=== PATIENT | male | born 1975 | race Caucasian/White ===

== ENCOUNTER → 2017-07-13 | Outpatient (CLI) | payer OTHER ==
--- NOTE | 2017-07-13 15:39 | US ---
EXAMINATION TYPE: US carotid duplex BILAT DATE OF EXAM: 07/13/2017 COMPARISON: NONE CLINICAL HISTORY: E78.2 MIXED HYPERLIPIDEMIA. left hand numbness per patient EXAM MEASUREMENTS: RIGHT: Peak Systolic Velocity (PSV) cm/sec ----- Right CCA: 76.7 ----- Right ICA: 60.3 ----- Right ECA: 75.6 ICA/CCA ratio: 0.8 RIGHT: End Diastole cm/sec ----- Right CCA: 26.0 ----- Right ICA: 32.5 ----- Right ECA: 22.7 LEFT: Peak Systolic Velocity (PSV) cm/sec ----- Left CCA: 106.9 ----- Left ICA: 105.3 ----- Left ECA: 50.3 ICA/CCA ratio: 1.0 LEFT: End Diastole cm/sec ----- Left CCA: 33.6 ----- Left ICA: 18.3 ----- Left ECA: 13.3 VERTEBRALS (direction of flow): Right Vertebral: Antegrade Left Vertebral: Antegrade Rhythm: Normal No significant stenosis seen, no elevated velocities. IMPRESSION: No sonographic evidence of hemodynamically significant stenosis within either carotid ar terial system.
== END | disposition home or self-care (01) ==
LOC: RADUSWWP 14:45
PROVIDERS: ATTEND Family Medicine
DX: E78.00 Pure hypercholesterolemia, unspecified (principal)
CPT/HCPCS: 93880

== ENCOUNTER → 2020-01-30 | Outpatient (CLI) | payer OTHER ==
--- NOTE | 2020-01-31 07:28 | CT ---
EXAMINATION TYPE: CT sinus wo con DATE OF EXAM: 01/30/2020 COMPARISON: None HISTORY: Chronic sinusitis. Dizziness. CT DLP: 673.2 mGycm. Automated Exposure Control for Dose Reduction was Utilized. TECHNIQUE: CT scan of the sinuses is performed without contrast, axial images are obtained, coronal r eformatted images are also reviewed. FINDINGS: The paranasal sinuses including the frontal, ethmoid, sphenoid, and maxillary sinuses bila terally are well-aerated without abnormal opacification. The ostiomeatal complex is patent bilateral ly on the coronal images. The globes are intact bilaterally. There is a deviated nasal septum. Lisbet bullosa is present on the right. IMPRESSION: The sinuses are clear and the ostiomeatal complex is patent bilaterally.
== END | disposition home or self-care (01) ==
LOC: RADCTMAIN 18:21
PROVIDERS: ATTEND Family Medicine
DX: J32.9 Chronic sinusitis, unspecified (principal)
CPT/HCPCS: 70486

== ENCOUNTER 2021-02-08 08:15 | Emergency (ER) | payer OTHER ==
[2021-02-08] MEDS ORDERED: HYDROmorphone 1 MG/ML 1 ML SYRINGE IVP STA (08:30)
[2021-02-08 08:48] LABS: Basophils # (A) 0.1 k/uL (0-0.2); Basophils % (A) 1 %; Eosinophils # (A) 0.3 k/uL (0-0.7); Eosinophils % (A) 3 %; HCT 43.7 % (39.0-53.0); HGB 15.2 gm/dL (13.0-17.5); Lymphocytes # (A) 3.2 k/uL (1.0-4.8); Lymphocytes % (A) 32 %; MCH 28.6 pg (25.0-35.0); MCHC 34.9 g/dL (31.0-37.0); MCV 82.1 fL (80.0-100.0); Monocytes # (A) 0.6 k/uL (0-1.0); Monocytes % (A) 6 %; Neutrophils # (A) 5.5 k/uL (1.3-7.7); Neutrophils % (A) 56 %; Platelet Count 329 k/uL (150-450); RBC 5.33 m/uL (4.30-5.90); RDW 13.7 % (11.5-15.5); WBC 9.8 k/uL (3.8-10.6)
--- NOTE | 2021-02-08 08:48 | ED ---
Abdominal Pain HPI - General Chief Complaint: Abdominal Pain Stated Complaint: Back pain Time Seen by Provider: 02/08/21 08:25 Source: patient Mode of arrival: ambulatory Limitations: no limitations - History of Present Illness Initial Comments: Patient is a 45-year-old male presenting to the emergency Department with complaints of severe right sided abdominal and back pain that started suddenly this morning. Patient states he never had pain like this in the past. He denies history of kidney stones. He states it feels like it's in his right back with radiation towards the front, describes it as burning, severe, 10/10. Patient is severely diaphoretic, can barely speak because of his pain level. He denies any chest pain or shortness of breath, no recent fevers. He states he was eating and drinking and follow his normal self yesterday. He has no cardiac history, no history of abdominal surgeries. No nausea or vomiting. He has no further complaints at this time. Upon arrival to the ER, his blood pressure is high 163/118, rest of vitals within normal limits. - Related Data Previous Rx's Medication Instructions Recorded Ketorolac [Toradol] 10 mg PO Q8HR #10 tab 02/08/21 Allergies Allergy/AdvReac Type Severity Reaction Status Date / Time No Known Allergies Allergy Verified 02/08/21 08:19 Review of Systems ROS Statement: Those systems with pertinent positive or pertinent negative responses have been documented in the HPI. ROS Other: All systems not noted in ROS Statement are negative. Past Medical History Past Medical History: No Reported History History of Any Multi-Drug Resistant Organisms: None Reported Past Surgical History: No Surgical Hx Reported Past Psychological History: No Psychological Hx Reported Smoking Status: Never smoker Past Alcohol Use History: None Reported Past Drug Use History: None Reported General Exam - General Exam Comments Initial Comments: GENERAL: Patient is well-developed and well-nourished. Patient is diaphoretic, in severe pain, trouble speaking full sentences secondary to the pain. HEAD: Atraumatic, normocephalic. EYES: Pupils equal round and reactive to light, extraocular movements intact, sclera anicteric, conjunctiva are normal. Eyelids were unremarkable. ENT: Nares patent, oropharynx clear without exudates. Moist mucous membranes. NECK: Normal range of motion, supple without lymphadenopathy or JVD. LUNGS: Unlabored respirations. Breath sounds clear to auscultation bilaterally and equal. No wheezes rales or rhonchi. HEART: Tachycardia rate and rhythm without murmurs, rubs or gallops. ABDOMEN: Soft, tender to palpation of the right side of the abdomen, positive guarding, normoactive bowel sounds. No masses appreciated. : Deferred MUSCULOSKELETAL: Normal extremities with adequate strength and normal range of motion, no pitting or edema. No clubbing or cyanosis. NEUROLOGICAL: Patient is alert and oriented x 3. Motor and sensory are also intact. Cranial nerves II through XII grossly intact. PSYCH: Normal mood, normal affect. SKIN: Warm, Dry, normal turgor, no rashes or lesions noted. Pulses are equal and bilateral bilateral femoral and bilateral dorsal pedis. Limitations: no limitations Course Vital Signs 02/08/21 02/08/21 02/08/21 08:19 08:24 08:30 Temperature 98.0 F Pulse Rate 62 59 L Respiratory 16 16 Rate Blood Pressure 163/118 178/124 O2 Sat by Pulse 99 98 98 Oximetry 02/08/21 02/08/21 02/08/21 08:40 09:13 10:19 Temperature Pulse Rate 62 62 87 Respiratory 10 L 16 16 Rate Blood Pressure 149/90 160/77 108/67 O2 Sat by Pulse 98 99 99 Oximetry Medical Decision Making - Medical Decision Making Patient is a 45-year-old male presenting to the emergency Department with complaints of severe right-sided abdominal pain started suddenly this morning. Patient is severely diaphoretic, crying in pain. He is hypertensive, rest of vitals within normal limits. I did send patient straight to CT to rule out dissection, CT angiogram of the thoracic and pelvis showed no evidence of an aneurysm or dissection, he does have a right 3-4 mm calculus at the UV junction with mild right hydronephrosis. Patients labs are all within normal limits including a normal troponin, urinalysis shows large amount of blood. Patient was given 1 dose of Dilaudid. He has been resting comfortable. I discussed these findings with the patient. She'll be sent home with Toradol tablets for any additional discomfort. I recommended increasing his water intake. He can follow up with his primary care physician. He is agreeable to this plan of care. Return parameters were discussed with him and he verbalized understanding. Case discussed with Dr. Krueger. - Lab Data Result diagrams: 02/08/21 08:24 02/08/21 08:24 Lab Results 02/08/21 02/08/21 02/08/21 Range/Units 08:24 08:24 08:24 WBC 9.8 (3.8-10.6) k/uL RBC 5.33 (4.30-5.90) m/uL Hgb 15.2 (13.0-17.5) gm/dL Hct 43.7 (39.0-53.0) % MCV 82.1 (80.0-100.0) fL MCH 28.6 (25.0-35.0) pg MCHC 34.9 (31.0-37.0) g/dL RDW 13.7 (11.5-15.5) % Plt Count 329 (150-450) k/uL MPV 7.0 Neutrophils % 56 % Lymphocytes % 32 % Monocytes % 6 % Eosinophils % 3 % Basophils % 1 % Neutrophils # 5.5 (1.3-7.7) k/uL Lymphocytes # 3.2 (1.0-4.8) k/uL Monocytes # 0.6 (0-1.0) k/uL Eosinophils # 0.3 (0-0.7) k/uL Basophils # 0.1 (0-0.2) k/uL PT (9.0-12.0) sec INR (<1.2) APTT (22.0-30.0) sec Sodium 140 (137-145) mmol/L Potassium 3.8 (3.5-5.1) mmol/L Chloride 106 (98-107) mmol/L Carbon Dioxide 23 (22-30) mmol/L Anion Gap 11 mmol/L BUN 16 (9-20) mg/dL Creatinine 0.98 (0.66-1.25) mg/dL Est GFR (CKD-EPI)AfAm >90 (>60 ml/min/1.73 sqM) Est GFR (CKD-EPI)NonAf >90 (>60 ml/min/1.73 sqM) Glucose 131 H (74-99) mg/dL Plasma Lactic Acid Kobe (0.7-2.0) mmol/L Calcium 9.4 (8.4-10.2) mg/dL Total Bilirubin 0.3 (0.2-1.3) mg/dL AST 40 (17-59) U/L ALT 42 (4-49) U/L Alkaline Phosphatase 110 (38-126) U/L Troponin I (0.000-0.034) ng/mL Total Protein 7.1 (6.3-8.2) g/dL Albumin 4.5 (3.5-5.0) g/dL Amylase 51 (30-110) U/L Lipase 140 (23-300) U/L Urine Color Light Yellow Urine Appearance Clear (Clear) Urine pH 5.5 (5.0-8.0) Ur Specific [place] >1.050 H (1.001-1.035) Urine Protein Trace H (Negative) Urine Glucose (UA) Negative (Negative) Urine Ketones Negative (Negative) Urine Blood Large H (Negative) Urine Nitrite Negative (Negative) Urine Bilirubin Negative (Negative) Urine Urobilinogen <2.0 (<2.0) mg/dL Ur Leukocyte Esterase Negative (Negative) Urine RBC 87 H (0-5) /hpf Urine WBC 2 (0-5) /hpf Ur Squamous Epith Cells <1 (0-4) /hpf 02/08/21 02/08/21 02/08/21 Range/Units 08:24 08:24 08:24 WBC (3.8-10.6) k/uL RBC (4.30-5.90) m/uL Hgb (13.0-17.5) gm/dL Hct (39.0-53.0) % MCV (80.0-100.0) fL MCH (25.0-35.0) pg MCHC (31.0-37.0) g/dL RDW (11.5-15.5) % Plt Count (150-450) k/uL MPV Neutrophils % % Lymphocytes % % Monocytes % % Eosinophils % % Basophils % % Neutrophils # (1.3-7.7) k/uL Lymphocytes # (1.0-4.8) k/uL Monocytes # (0-1.0) k/uL Eosinophils # (0-0.7) k/uL Basophils # (0-0.2) k/uL PT 10.3 (9.0-12.0) sec INR 1.0 (<1.2) APTT 22.6 (22.0-30.0) sec Sodium (137-145) mmol/L Potassium (3.5-5.1) mmol/L Chloride (98-107) mmol/L Carbon Dioxide (22-30) mmol/L Anion Gap mmol/L BUN (9-20) mg/dL Creatinine (0.66-1.25) mg/dL Est GFR (CKD-EPI)AfAm (>60 ml/min/1.73 sqM) Est GFR (CKD-EPI)NonAf (>60 ml/min/1.73 sqM) Glucose (74-99) mg/dL Plasma Lactic Acid Kobe 1.9 (0.7-2.0) mmol/L Calcium (8.4-10.2) mg/dL Total Bilirubin (0.2-1.3) mg/dL AST (17-59) U/L ALT (4-49) U/L Alkaline Phosphatase (38-126) U/L Troponin I <0.012 (0.000-0.034) ng/mL Total Protein (6.3-8.2) g/dL Albumin (3.5-5.0) g/dL Amylase (30-110) U/L Lipase (23-300) U/L Urine Color Urine Appearance (Clear) Urine pH (5.0-8.0) Ur Specific [place] (1.001-1.035) Urine Protein (Negative) Urine Glucose (UA) (Negative) Urine Ketones (Negative) Urine Blood (Negative) Urine Nitrite (Negative) Urine Bilirubin (Negative) Urine Urobilinogen (<2.0) mg/dL Ur Leukocyte Esterase (Negative) Urine RBC (0-5) /hpf Urine WBC (0-5) /hpf Ur Squamous Epith Cells (0-4) /hpf - EKG Data EKG Comments: Normal sinus rhythm, inferior infarct, age undetermined, no signs of acute ST segment elevation. Ventricular rate 62, UT over 118, QTC 428. Disposition Clinical Impression: Right ureteral stone, Abdominal pain Disposition: HOME SELF-CARE Condition: Stable Instructions (If sedation given, give patient instructions): Kidney Stones (ED) Additional Instructions: Please return to the Emergency Department if symptoms worsen or any other concerns. May take Toradol or ibuprofen for any further discomfort. Be sure to increase your fluid intake as discussed. If symptoms persist, follow-up with urology. Prescriptions: Ketorolac [Toradol] 10 mg PO Q8HR #10 tab Is patient prescribed a controlled substance at d/c from ED?: No Referrals: Pratik Castro MD [Primary Care Provider] - 1-2 days Luis Ji MD [STAFF PHYSICIAN] - 1-2 days Time of Disposition: 10:53
[2021-02-08 08:55] LABS: ALT 42 U/L (4-49); AST 40 U/L (17-59); African American GFR (CKD) >90 (>60 ml/min/1.73 sqM); Albumin 4.5 g/dL (3.5-5.0); Alkaline Phosphatase 110 U/L (38-126); Amylase 51 U/L (30-110); Anion Gap 11 mmol/L; Blood Urea Nitrogen 16 mg/dL (9-20); Calcium 9.4 mg/dL (8.4-10.2); Carbon Dioxide 23 mmol/L (22-30); Chloride 106 mmol/L (98-107); Glucose 131 mg/dL (74-99); Lipase 140 U/L (23-300); Non-African American GFR(CKD) >90 (>60 ml/min/1.73 sqM); Potassium 3.8 mmol/L (3.5-5.1); Sodium 140 mmol/L (137-145); Total Bilirubin 0.3 mg/dL (0.2-1.3); Total Protein 7.1 g/dL (6.3-8.2)
[2021-02-08 09:10] LABS: Partial Thromboplastin Time 22.6 sec (22.0-30.0); Prothrombin Time 10.3 sec (9.0-12.0)
[2021-02-08 09:14] VITALS: RESP 16
[2021-02-08 10:29] LABS: Appearance,Urine Clear (Clear); Bilirubin,Urine Negative (Negative); Blood,Urine Large (Negative); Color,Urine Light Yellow; Glucose,Urine (UA) Negative (Negative); Ketones,Urine Negative (Negative); Leukocyte Esterase,Urine Negative (Negative); Nitrite,Urine Negative (Negative); PH, Urine 5.5 (5.0-8.0); Protein,Urine Trace (Negative); RBC,Urine 87 /hpf (0-5); Squamous Epithelial Cell,Urine <1 /hpf (0-4); Urobilinogen,Urine <2.0 mg/dL (<2.0); WBC,Urine 2 /hpf (0-5)
[2021-02-08 10:34] LABS: Specific Gravity,Urine >1.050 (1.001-1.035)
--- NOTE | 2021-02-08 10:42 | CT ---
EXAMINATION TYPE: CT angio thor/abd pel aorta DATE OF EXAM: 02/08/2021 HISTORY: 45-year-old male with severe abdominal pain COMPARISON: NONE CT DLP: 1369.3 mGycm. Automated Exposure Control for Dose Reduction was Utilized. TECHNIQUE: CT scan of the abdomen and pelvis is performed 100 mL Isovue-370 IV contrast. FINDINGS: THE AORTA: The aorta is normal in course and caliber and there is no evidence of aortic aneurysm or d issection. The celiac trunk, SMA, renal arteries and BOBBY are patent. The terminal branches of the aor ta are patent to the level of the upper thigh. PULMONARY ARTERY: Normal in diameter. No occlusive filling defects in the main right or left pulmonar y arteries. CHEST: No focal airspace disease, pneumothorax or pleural effusion seen. Trachea and bronchial tree a re patent. There is a 6 mm nodule in the right lower lobe series 501 image 59. There is a 4 mm pleura l-based nodule in the right lower lobe series 501 image 63. The heart is normal in size and there is no pericardial effusion. No hilar or mediastinal adenopathy. ABDOMEN: Liver, gallbladder, spleen, adrenal glands and pancreas are within normal limits. There is n o abnormal biliary ductal dilatation. The pancreas has partial fatty changes. There is normal attenuation of the bilateral renal parenchyma. There is a 3 mm right ureterovesical j unction calculus with mild right hydroureter or hydronephrosis. The urinary bladder is partially dist ended. There is no evidence of intestinal obstruction. There is no acute diverticulosis or appendicitis. The appendix is normal in appearance. There is no pneumoperitoneum or ascites. No enlarged retroperitoneal or pelvic lymph nodes seen. Small fat-containing left inguinal hernia noted. No aggressive osseous lesion seen. Mild scoliosis noted in the thoracolumbar spine. Mild to moderate degenerative changes seen in the spine most severe at L4-5. Soft tissue is unremarkable. IMPRESSION: 1. No aneurysm or dissection the aorta. 2. Right UVJ 3-4 mm calculus with mild right hydronephrosis. 3. Right lower lobe incidental pulmonary nodules measuring 4 mm to 6 mm could be inflammatory, infect ious or malignant. Follow-up according to Fleischner criteria recommended.
[2021-02-08 11:12] VITALS: BP 119/80; PULSE 80; TEMP 98.1
== END 2021-02-08 11:11 | disposition home or self-care (01) ==
LOC: EC 08:15
DX: N13.2 Hydronephrosis with renal and ureteral calculous obstruction (principal)
CPT/HCPCS: 36415; 93005; 80053; 82150; 83605; 83690; 84484; 85025; 85610; 85730; 81001; 71275; 74174; 99284; 96374; J1170; Q9967

== ENCOUNTER → 2022-02-08 | Outpatient (CLI) | payer OTHER ==
--- NOTE | 2022-02-08 18:51 | US ---
EXAMINATION TYPE: US kidneys/renal and bladder DATE OF EXAM: 02/08/2022 COMPARISON: NONE CLINICAL HISTORY: N20.0 CALCULUS OF KIDNEY. Patient states having a right kidney stone last year and has had pain since EXAM MEASUREMENTS: Right Kidney: 10.9 x 5.7 x 5.1 cm Left Kidney: 11.9 x 5.1 x 5.6 cm Right Kidney: No hydronephrosis, nephrolithiasis or masses seen Left Kidney: No hydronephrosis, nephrolithiasis or masses seen Bladder: distended, anechoic Bilateral Jets seen Incidental finding: enlarged spleen = 15.1 cm There is no evidence for hydronephrosis at this point in time. No nephrolithiasis is seen. No anabel s are identified. The urinary bladder is anechoic. Bilateral ureteral jets are seen. IMPRESSION: 1. No hydronephrosis or nephrolithiasis. 2. Incidental note made of mild splenomegaly.
== END | disposition home or self-care (01) ==
LOC: RADUSWWP 16:26
PROVIDERS: ATTEND Family Medicine
DX: N20.0 Calculus of kidney (principal); R16.1 Splenomegaly, not elsewhere classified
CPT/HCPCS: 76770

== ENCOUNTER → 2022-04-29 | Outpatient (CLI) | payer OTHER ==
--- NOTE | 2022-04-30 11:55 | US ---
EXAMINATION TYPE: US abdomen complete DATE OF EXAM: 04/29/2022 COMPARISON: NONE CLINICAL HISTORY: K80.50 CALCULUS OF BILE DUCT W/O CHOLANGITIS OR CH. TECHNIQUE: Multiple sonographic images of the abdomen are obtained. FINDINGS: EXAM MEASUREMENTS: Liver Length: 16.6 cm Gallbladder Wall: 0.2 cm CBD: 0.5 cm Spleen: 15.4 cm Right Kidney: 11.5 x 4.8 x 5.4 cm Left Kidney: 12.1 x 5.9 x 5.2 cm [employer]INTE[employer]CE NOTES: Patient of large body habitus with extensive overlying midline bowel gas. Technically difficult, limi candelario study. Pancreas: Obscured by bowel gas Liver: Increased attenuation, decreased visualization of vessels suggestive of fatty infiltrate Gallbladder: wnl Evidence for sonographic James's sign: no CBD: very limited visualization, portions visualized appear wnl Spleen: enlarged Right Kidney: No hydronephrosis or masses seen Left Kidney: No hydronephrosis or masses seen Upper IVC: wnl Abd Aorta: portions visualized wnl IMPRESSION: 1. No suspicious acute abdominal ultrasound abnormality. There is some limitation due to bowel gas an d body habitus.
== END | disposition home or self-care (01) ==
LOC: RADUSWWP 16:19
PROVIDERS: ATTEND Family Medicine
DX: R14.3 Flatulence (principal)
CPT/HCPCS: 76700

== ENCOUNTER → 2022-12-21 | Outpatient (CLI) | payer OTHER ==
--- NOTE | 2022-12-22 09:14 | CT ---
EXAMINATION TYPE: CT lower extremity RT wo con DATE OF EXAM: 12/21/2022 COMPARISON: None HISTORY: Soft tissue swelling to distal femur x [address] DLP: 889.8 mGycm Automated exposure control for dose reduction was used. FINDINGS: There is skin thickening and subcutaneous edema in the prepatellar space extending below the level of L1. Small soft tissue varicosities are noted. There is mild thickening of definition of the insertion of quadriceps tendon along the upper margin o f the patella. Trace amount of fluid in the supra patellar bursa. There is no evidence of soft tissue mass. No acute fracture. No dislocation. There is a tiny spur negrito ng the upper margin of L1 with mild narrowing of the medial compartment knee joint and patellofemoral joint. No erosive changes. IMPRESSION: 1. THERE IS SKIN THICKENING AND SUBCUTANEOUS EDEMA IN THE PREPATELLAR SPACE CORRELATE FOR CELLULITIS OR POSTTRAUMATIC EDEMA. IRREGULARITY AT THE QUADRICEPS PATELLA COULD BE ON THE BASIS OF TENDINOSIS OR TENDON INJURY RECOMMEND FOLLOW-UP MRI.
== END | disposition home or self-care (01) ==
LOC: RADCTMAIN 17:26
PROVIDERS: ATTEND Family Medicine
DX: R60.0 Localized edema (principal)

== ENCOUNTER 2023-01-29 17:52 | Emergency (ER) | payer OTHER ==
[2023-01-29 18:00] VITALS: TEMP 98.3
[2023-01-29] MEDS ORDERED: methylPREDNISolone SOD SUCCI 125 MG/2 ML VIAL IV STA (18:25)
[2023-01-29] MEDS ORDERED: diphenhydrAMINE 50 MG/ML 1 ML VIAL IVP STA (18:25)
[2023-01-29] MEDS ORDERED: FAMOTIDINE 20 MG/2 ML VIAL IV STA (19:24)
[2023-01-29] MEDS ORDERED: diphenhydrAMINE 50 MG CAP PO STA (19:40)
--- NOTE | 2023-01-29 20:02 | ED ---
Allergic Reaction HPI - General Chief complaint: Allergic Reaction Stated complaint: Bee Sting above R eye Time Seen by Provider: 01/29/23 18:08 Source: patient Mode of arrival: ambulatory Limitations: no limitations - History of Present Illness Initial Comments: A 47-year-old male presents to the ED with a chief complaint of ALLERGIC reaction. Patient states prior to arrival was stung by a bee over his right eye. Shortly after started to develop swelling over his right eye. Denies rashes. States that he started to also feel short of breath over has no difficulty breathing. No other complaints. - Related Data Previous Rx's Medication Instructions Recorded Ketorolac [Toradol] 10 mg PO Q8HR #10 tab 02/08/21 diphenhydrAMINE [Benadryl] 50 mg PO Q6H PRN #20 capsule 01/29/23 methylPREDNISolone Dose Pack 4 mg PO DIRECTED #21 tab 01/29/23 [Medrol Dose Pack] Allergies Allergy/AdvReac Type Severity Reaction Status Date / Time bee venom protein (honey bee) Allergy Swelling Verified 01/29/23 18:00 Review of Systems ROS Statement: Those systems with pertinent positive or pertinent negative responses have been documented in the HPI. ROS Other: All systems not noted in ROS Statement are negative. Past Medical History Past Medical History: Hypertension History of Any Multi-Drug Resistant Organisms: None Reported Past Surgical History: No Surgical Hx Reported Past Psychological History: No Psychological Hx Reported Smoking Status: Never smoker Past Alcohol Use History: None Reported Past Drug Use History: None Reported General Exam Limitations: no limitations General appearance: alert, in no apparent distress Eye exam: Present: PERRL ENT exam: Present: other (No swelling of the oropharynx. Moderate Swelling over the right eyelid.) Respiratory exam: Present: normal lung sounds bilaterally Cardiovascular Exam: Present: regular rate, normal rhythm GI/Abdominal exam: Present: soft Neurological exam: Present: alert, oriented X3 Psychiatric exam: Present: normal affect, normal mood Skin exam: Present: warm, dry Course Vital Signs 01/29/23 01/29/23 17:56 18:54 Temperature 98.3 F Pulse Rate 87 70 Respiratory 20 18 Rate Blood Pressure 135/87 O2 Sat by Pulse 99 99 Oximetry Medical Decision Making - Medical Decision Making Was pt. sent in by a medical professional or institution (, PA, CPR AMBULANCE DRIVER, urgent care, hospital, or [facility]...) When possible be specific @ -No Did you speak to anyone other than the patient for history (EMS, parent, family, police, friend...)? What history was obtained from this source @ -No Did you review nursing and triage notes (agree or disagree)? Why? @ -I reviewed and agree with nursing and triage notes Were old charts reviewed (outside hosp., previous admission, EMS record, old EKG, old radiological studies, urgent care reports/EKG's, [facility] records)? Report findings @ -No old charts were reviewed Differential Diagnosis (chest pain, altered mental status, abdominal pain women, abdominal pain men, vaginal bleeding, weakness, fever, dyspnea, syncope, headache, dizziness, GI bleed, back pain, seizure, CVA, palpatations, mental health, musculoskeletal)? @ -Anaphylaxsis, retained stinger. This not meant to be an all-inclusive list EKG interpreted by me (3pts min.). @ -None X-rays interpreted by me (1pt min.). @ -None done CT interpreted by me (1pt min.). @ -None done U/S interpreted by me (1pt. min.). @ -None done What testing was considered but not performed or refused? (CT, X-rays, U/S, labs)? Why? @ -None What meds were considered but not given or refused? Why? @ -None Did you discuss the management of the patient with other professionals (professionals i.e. , PA, CPR AMBULANCE DRIVER, lab, RT, psych nurse, renal social worker, ceramics instructor, teacher, corrections officer, case consultant)? Give summary @ -No Was smoking cessation discussed for >3mins.? @ -No Was critical care preformed (if so, how long)? @ -No Were there social determinants of health that impacted care today? How? (Homelessness, low income, unemployed, alcoholism, drug addiction, transportation, low edu. Level, literacy, decrease access to med. care, custodial, rehab)? @ -No Was there de-escalation of care discussed even if they declined (Discuss DNR or withdrawal of care, Hospice)? DNR status @ -No What co-morbidities impacted this encounter? (DM, HTN, Smoking, COPD, CAD, Cancer, CVA, ARF, Chemo, Hep., AIDS, mental health diagnosis, sleep apnea, morbid obesity)? @ -None Was patient admitted / discharged? Hospital course, mention meds given and route, prescriptions, significant lab abnormalities, going to OR and other pertinent info. @ -Discharge. Patient provided Solu-Medrol and Benadryl here. Patient had improvement of shortness of breath and swelling here. Provided prescription for Medrol Dosepak and Benadryl. Discussed return precautions patient verbalizes agreement. Undiagnosed new problem with uncertain prognosis? @ -No Drug Therapy requiring intensive monitoring for toxicity (Heparin, Nitro, Insulin, Cardizem)? @ -No Were any procedures done? @ -No Diagnosis/symptom? @ -Reaction to bee sting Acute, or Chronic, or Acute on Chronic? @ -Acute Uncomplicated (without systemic symptoms) or Complicated (systemic symptoms)? @ -Complicated Side effects of treatment? @ -No Exacerbation, Progression, or Severe Exacerbation? @ -No Poses a threat to life or bodily function? How? (Chest pain, [place], [place], pneumonia, PE, COPD, DKA, ARF, appy, cholecystitis, CVA, Diverticulitis, Homicidal, Suicidal, threat to staff... and all critical care pts) @ -No Disposition Clinical Impression: Bee sting allergy, Allergic reaction to bee sting Disposition: HOME SELF-CARE Condition: Good Instructions (If sedation given, give patient instructions): Anaphylaxis (ED) Additional Instructions: Please return to the Emergency Department if symptoms worsen or any other concerns. Prescriptions: diphenhydrAMINE [Benadryl] 50 mg PO Q6H PRN #20 capsule PRN Reason: Allergic Reaction methylPREDNISolone Dose Pack [Medrol Dose Pack] 4 mg PO DIRECTED #21 tab Is patient prescribed a controlled substance at d/c from ED?: No Referrals: Pratik Castro MD [Primary Care Provider] - 1-2 days Time of Disposition: 19:15
[2023-01-29 23:41] VITALS: BP 124/68; PULSE 65; RESP 16
== END 2023-01-29 20:20 | disposition home or self-care (01) ==
LOC: EC 17:52
DX: T63.441A Toxic effect of venom of bees, accidental (unintentional), initial encounter (principal); I10 Essential (primary) hypertension; Z91.030 Bee allergy status
CPT/HCPCS: 99283; 96374; 96375 ×2; J1200; J2930